=== PATIENT | female | born 1945 | race Caucasian/White ===

== ENCOUNTER 2021-08-15 12:41 | Outpatient (CLI) | payer MEDICARE | END 2021-08-15 12:42 | disposition home or self-care (01) | LOC: NAV CT 12:41 | PROVIDERS: ATTEND Urology | DX: R31.9 Hematuria, unspecified (principal); N20.0 Calculus of kidney; N28.1 Cyst of kidney, acquired | CPT/HCPCS: 36415; 74178; 82565 ==

== ENCOUNTER 2021-08-15 13:47 | Outpatient (CLI) | payer MEDICARE | END 2021-08-15 13:48 | disposition home or self-care (01) | LOC: NAV LAB 13:47 | PROVIDERS: ATTEND Radiology Diagnostic Radiology | DX: Z01.812 Encounter for preprocedural laboratory examination (principal) | CPT/HCPCS: 36415; 82565 ==